=== PATIENT | female | born 1965 | race Hispanic/Latino ===

== ENCOUNTER 2017-05-25 16:52 | Emergency (ER) | payer BC ==
[2017-05-25 17:04] VITALS: BP 153/84
[2017-05-25] MEDS ORDERED: TDAP Vaccine 0.5 mL Syr IM ONE (17:55)
[2017-05-25 17:56] VITALS: PULSE 72; TEMP 98.6; O2SAT 99
--- NOTE | 2017-05-25 18:01 | ED PDOC ---
Arrival/HPI - General Historian: Patient <Dorina Sharp A - Last Filed: 05/25/17 21:07> <Aileen Sandra - Last Filed: 05/25/17 23:39> - General Chief Complaint: Trauma Time Seen by Provider: 05/25/17 17:05 - History of Present Illness Narrative History of Present Illness (Text): 05/25/17 17:56 52yo female present with complaint of laceration to her left 3rd finger x hour. states she accidentally cut her finger with a knife while cooking. she is not up to date with TD vaccination. denies any other complaint. She have FROM of finger. No focal weakness of finger (Dorina Sharp A) Past Medical History - Provider Review Nursing Documentation Reviewed: Yes - Cardiac Hx Cardiac Disorders: No - Pulmonary Hx Respiratory Disorders: No - Neurological Hx Neurological Disorder: Yes Hx Seizures: Yes (child) Hx Transient Ischemic Attacks (TIA): Yes (29 years old) - HEENT Hx HEENT Disorder: No - Renal Hx Renal Disorder: No - Endocrine/Metabolic Hx Endocrine Disorders: Yes Hx Hypothyroidism: Yes - Hematological/Oncological Hx Blood Disorders: No - Integumentary Hx Dermatological Disorder: Yes Hx Psoriasis: Yes - Musculoskeletal/Rheumatological Hx Musculoskeletal Disorders: No - Gastrointestinal Hx Gastrointestinal Disorders: Yes Hx Gastroesophageal Reflux: Yes - Genitourinary/Gynecological Hx Genitourinary Disorders: No - Psychiatric Hx Psychophysiologic Disorder: Yes Hx Depression: Yes Hx Substance Use: No - Surgical History Other/Comment: fibroid 2007, nasal 2000 - Anesthesia Hx Anesthesia: No <Dorina Sharp A - Last Filed: 05/25/17 21:07> Family/Social History - Physician Review Nursing Documentation Reviewed: Yes Family/Social History: Unknown Family HX Smoking Status: Former Smoker Hx Alcohol Use: Yes Frequency of alcohol use: Socially Hx Substance Use: No <Dorina Sharp A - Last Filed: 05/25/17 21:07> Allergies/Home Meds <Dorina Sharp A - Last Filed: 05/25/17 21:07> <Aileen Sandra - Last Filed: 05/25/17 23:39> Allergies/Adverse Reactions: Allergies neomycin Allergy (Verified 05/25/17 17:04) SWELLING propylene glycol Allergy (Verified 05/25/17 17:04) SWELLING Review of Systems - Physician Review All systems were reviewed & negative as marked: Yes - Review of Systems Constitutional: Normal Eyes: Normal ENT: Normal Respiratory: Normal Cardiovascular: Normal Gastrointestinal: Normal Genitourinary Female: Normal Musculoskeletal: Normal Skin: Laceration (Left 4th finger) Neurological: Normal Endocrine: Normal Hemo/Lymphatic: Normal Psychiatric: Normal <Diru,Happiness A - Last Filed: 05/25/17 21:07> Physical Exam Vital Signs Reviewed: Yes Temperature: Afebrile Blood Pressure: Normal Pulse: Regular Respiratory Rate: Normal Appearance: Positive for: Well-Appearing, Non-Toxic, Comfortable Pain Distress: None Mental Status: Positive for: Alert and Oriented X 3 - Systems Exam Head: Present: Atraumatic, Normocephalic Pupils: Present: PERRL Extroacular Muscles: Present: EOMI Conjunctiva: Present: Normal Mouth: Present: Moist Mucous Membranes Neck: Present: Normal Range of Motion Respiratory/Chest: Present: Clear to Auscultation, Good Air Exchange. No: Respiratory Distress, Accessory Muscle Use Cardiovascular: Present: Regular Rate and Rhythm, Normal S1, S2. No: Murmurs Abdomen: Present: Normal Bowel Sounds. No: Tenderness, Distention, Peritoneal Signs Back: Present: Normal Inspection Upper Extremity: Present: Normal Inspection. No: Cyanosis, Edema Lower Extremity: Present: Normal Inspection. No: Edema Neurological: Present: GCS=15, CN II-XII Intact, Speech Normal Skin: Present: Warm, Dry, Normal Color, Laceration (1.7cm laceration to left 4th finger tuft). No: Rashes Psychiatric: Present: Alert, Oriented x 3, Normal Insight, Normal Concentration <Diru,Happiness A - Last Filed: 05/25/17 21:07> Vital Signs Temp Pulse Resp BP Pulse Ox 05/25/17 18:08 19 99 05/25/17 17:56 98.6 F 72 18 99 05/25/17 16:55 98.3 F 67 18 153/84 H 94 L - Medication Orders Current Medication Orders: Discontinued Medications Cephalexin Monohydrate (Keflex) 500 mg PO STAT STA PRN Reason: Protocol Stop: 05/25/17 17:57 Last Admin: 05/25/17 18:03 Dose: 500 mg Tetanus/Reduced Diphtheria/Acell Pertussis (Boostrix Vaccine Inj) 0.5 ml IM .ONCE ONE Stop: 05/25/17 17:56 Last Admin: 05/25/17 18:02 Dose: 0.5 ml Immunization Registry Document 05/25/17 18:02 HARLEY (Rec: 05/25/17 18:02 [id number]) Immunization Registry Consent Date 05/25/17 Procedure: Wound Repair - Consent Obtained Consent obtained: Verbal - Performed by Performed by: Mid-level Provider - Indications Indication(s):: Laceration - Location Finger:: Left, Ring Shape:: Linear Dimensions Length cm: 1.7 - Anesthetic Technique Anesthetic Technique: Local Local/Regional Anesthetic:: Lidocaine 1% (5) - Debris Debris:: None - Irrigated Irrigated with ml of normal saline: 50 - Complexity Complexity:: Intermediate (2 layer) - Muscle repiar layer closed with Muscle repair layer closed with:: # (6), Size (5), Type (nylon), Technique ( interrupted), Wound well approximated, Abx ointment applied, Dressing applied, Tetanus ordered <Dorina Sharp - Last Filed: 05/25/17 21:07> - PA / [employer]OVING [employer]ER / Resident Statement / has reviewed & agrees with the documentation as recorded. <Aileen Sandra - Last Filed: 05/25/17 23:39> Disposition/Present on Arrival - Present on Arrival Any Indicators Present on Arrival: No History of DVT/PE: No History of Uncontrolled Diabetes: No Urinary Catheter: No History of Decub. Ulcer: No History Surgical Site Infection Following: None - Disposition Have Diagnosis and Disposition been Completed?: Yes Disposition Time: 18:00 Patient Plan: Discharge <Dorina Sharp - Last Filed: 05/25/17 21:07> <Aileen Sandra - Last Filed: 05/25/17 23:39> - Disposition Diagnosis: Finger laceration Disposition: HOME/ ROUTINE Condition: STABLE Discharge Instructions (ExitCare): Finger Laceration (ED) Additional Instructions: Keep wound clean and dry Follow up with your Doctor in 10days for suture removal Return to ED for fever, discharge, redness of wound Prescriptions: Cephalexin [Keflex] 500 mg PO TID #15 capsule Referrals: Ernesto Pino MD [Primary Care Provider] - Follow up with primary Forms: [facility] ([place])
[2017-05-25 18:08] VITALS: RESP 19
== END 2017-05-25 18:08 | disposition home or self-care (01) ==
LOC: ED 16:52
DX: S61.215A Laceration without foreign body of left ring finger without damage to nail, initial encounter (principal); W26.0XXA Contact with knife, initial encounter; Y93.G3 Activity, cooking and baking; Y92.89 Other specified places as the place of occurrence of the external cause; Z23 Encounter for immunization